=== PATIENT | male | born 1955 | race African-American/Black ===

== ENCOUNTER 2017-11-25 00:51 | Emergency (ER) | payer BC | END 2017-11-25 02:10 | disposition home or self-care (01) | LOC: ERS 00:51 | DX: H01.004 Unspecified blepharitis left upper eyelid (principal); I10 Essential (primary) hypertension; R73.03 Prediabetes | CPT/HCPCS: 99283 ==

== ENCOUNTER 2018-02-24 03:58 | Emergency (ER) | payer BC ==
[2018-02-24] MEDS ORDERED: Ketorolac Tromethamine 60 MG/2 ML VIAL ONE (04:11)
== END 2018-02-24 04:50 | disposition home or self-care (01) ==
LOC: ERS 03:58
DX: M10.9 Gout, unspecified (principal); E11.9 Type 2 diabetes mellitus without complications; I10 Essential (primary) hypertension; Z79.899 Other long term (current) drug therapy
CPT/HCPCS: 96372; J1885

== ENCOUNTER 2018-04-25 15:33 | Observation (INO) | payer BC ==
[2018-04-25 16:00] LABS: #Basophils 0.1 thou/uL (0.0-0.2); #Eosinphils 0.2 thou/uL (0.0-0.7); #Lymphocytes 2.9 thou/uL (1.20-3.40); #Monocytes 0.7 thou/uL (0.11-0.59); #Neutrophils 7.4 thou/uL (1.40-6.50); %Basophils 0.6 % (0.0-1.0); %Eosinophils 1.7 % (0.0-10.0); %Lymphocytes 25.5 % (21.0-51.0); %Monocytes 6.6 % (0.0-10.0); %Neutrophils 65.6 % (42.0-75.0); Hemoglobin 14.8 g/dL (14.0-18.0); Mean Corpuscular HGB CONC 33.5 g/dL (32.0-36.0); Mean Corpuscular Hemoglobin 29.6 pg (27.0-31.0); Mean Corpuscular Volume 88.3 fL (78.0-98.0); Mean Platelet Volume 8.8 fL (7.4-10.4); Platelet Count 296 thou/uL (130-400); RBC Distribution Width 12.4 % (11.5-14.5); Red Blood Cell (RBC) Count 5.01 mill/uL (4.70-6.10); White Blood Cell (WBC) Count 11.3 thou/uL (4.8-10.8)
[2018-04-25 16:21] LABS: ALT (SGPT) 40 U/L (8-55); AST (SGOT) 27 U/L (5-34); Albumin 4.6 g/dL (3.5-5.0); Alkaline Phosphatase 102 U/L (40-150); Anion Gap 17 mmol/L (10-20); BUN (Urea Nitrogen) 16 mg/dL (8.4-25.7); Bilirubin, Total 0.4 mg/dL (0.2-1.2); CK (CPK) 175 U/L (30-200); Calc. Creatinine Clearance 0 mL/min (70-130); Calcium 10.9 mg/dL (7.8-10.44); Carbon Dioxide 27 mmol/L (22-29); Chloride 98 mmol/L (98-107); Estimated GFR-MDRD 72; Glucose 336 mg/dL (70-105); Potassium 3.2 mmol/L (3.5-5.1); Protein, Total 8.6 g/dL (6.0-8.3); Sodium 139 mmol/L (136-145)
[2018-04-25 16:25] LABS: CKMB 1.7 ng/mL (0-6.6); Troponin I Less than 0.010 ng/mL (< 0.028)
[2018-04-25] MEDS ORDERED: Aspirin 325 MG TAB ONE (16:51)
[2018-04-25] MEDS ORDERED: Potassium Chloride 20 MEQ TAB ONE (16:51)
[2018-04-25 16:59] LABS: Hemoglobin A1c 10.2 % (4.0-6.0)
--- NOTE | 2018-04-25 17:03 | CT ---
CT BRAIN WITHOUT CONTRAST: 04/25/18 HISTORY: Dizziness, nausea and vomiting. FINDINGS: There are changes of chronic small vessel ischemic disease in the periventricular white matter. No ev idence of acute infarct, hemorrhage, midline shift, or abnormal extra-axial fluid collections are see n. The ventricular size is appropriate and the basilar cisterns are patent. The bony calvarium is int act. There is mucosal disease in the paranasal sinuses. IMPRESSION: No CT evidence of acute intracranial process. POS: [facility]
[2018-04-25] MEDS ORDERED: Insulin Regular 300 UNITS/3 ML VIAL SC PRN (17:48)
[2018-04-25] MEDS ORDERED: Dextrose 50% Abboject 50 ML SYRINGE SLOW IVP PRN (17:48)
[2018-04-25] MEDS ORDERED: Dextrose 5% in Water 1,000 ML IV PRN (17:48)
[2018-04-25 17:54] VITALS: BMI 38.5
[2018-04-25] MEDS ORDERED: Ondansetron ODT 4 MG TAB PO PRN (18:34)
[2018-04-25] MEDS ORDERED: Ondansetron HCl/PF 4 MG/2 ML Vial IVP PRN (18:34)
[2018-04-25] MEDS ORDERED: Mag-Al 1200 mg/1200 mg/30 ML UDCUP PO PRN (18:34)
[2018-04-25] MEDS ORDERED: Acetaminophen 325 MG TAB PO PRN (18:34)
[2018-04-25] MEDS ORDERED: Calcium Carbonate 500 MG ChewTAB PO PRN (18:34)
[2018-04-25] MEDS ORDERED: hydrALAZINE 20 MG/ML VIAL SLOW IVP PRN (18:34)
[2018-04-25] MEDS ORDERED: Senokot 8.6 MG TAB PO PRN (18:34)
--- NOTE | 2018-04-25 18:52 | HP ---
DATE OF ADMISSION: 04/25/2018 PRIMARY CARE PHYSICIAN: Maurisio Soriano M.D. CHIEF COMPLAINT: Stroke-like symptoms. HISTORY OF PRESENT ILLNESS: The patient is a 62-year-old -[place] male with diabetes mellitus type 2 and hypertension who presented to the emergency room with above complaints. Patient was resting at home this afternoon watching TV. When he got up, he felt like he was unable to walk straight. He felt dizzy; however, denies any vertigo. No syncopal episode reported. He denies any blurring of vision, facial asymmetry, weakness, numbness of any of his extremities. No chest pain, palpitations, nausea, vomiting, diaphoresis reported. Upon arriving to the emergency room, he had one episode of vomiting. No aggravating or relieving factor reported. He denies any similar symptoms in the past. In the emergency room, CT scan of the brain showed chronic ischemic white matter changes. He received aspirin and oral potassium in the emergency room. PAST MEDICAL HISTORY: 1. Hypertension. 2. Obesity. 3. Gout. 4. Diabetes mellitus type 2. PAST SURGICAL HISTORY: Bilateral hip replacement. ALLERGIES: No known drug allergies. CURRENT HOME MEDICATIONS: Patient is unable to recall any of his home medications. He takes Janumet and one blood pressure medicine. He has not taken any of his medications for the last 5 days. SOCIAL HISTORY: Patient currently lives at home with his family. He works for the [employer]. No current use of smoking, alcohol or drug use. FAMILY HISTORY: Negative for premature coronary artery disease. REVIEW OF SYSTEMS: The following complete review of systems was negative, unless otherwise mentioned in the HPI or below: Constitutional: Weight loss or gain, ability to conduct usual activities. Skin: Rash, itching. Eyes: Double vision, pain. ENT/Mouth: Nose bleeding, neck stiffness, pain, tenderness. Cardiovascular: Palpitations, dyspnea on exertion, orthopnea. Respiratory: Shortness of breath, wheezing, cough, hemoptysis, fever or night sweats. Gastrointestinal: Poor appetite, abdominal pain, heartburn, nausea, vomiting, constipation, or diarrhea. Genitourinary: Urgency, frequency, dysuria, nocturia. Musculoskeletal: Pain, swelling. Neurologic/Psychiatric: Anxiety, depression. Allergy/Immunologic: Skin rash, bleeding tendency. PHYSICAL EXAMINATION: VITAL SIGNS: In the emergency room showed temperature 98.7, respirations 12, pulse rate of 97, blood pressure 157/106, O2 saturation 94% on room air. GENERAL: A 62-year-old male in no apparent distress. Symptoms slowly improving. HEENT: Head atraumatic, normocephalic. Sclerae are anicteric. Moist mucous membrane, no oral lesion. NECK: Supple, no JVD, no carotid bruit. LUNGS: Clear to auscultation bilaterally, no wheezing, rales or rhonchi. HEART: S1, S2 present. Regular rate and rhythm. No murmur, rubs, or gallops appreciated. ABDOMEN: Soft, nontender, bowel sounds present. EXTREMITIES: No edema or calf tenderness. PSYCHIATRY: Alert, awake, oriented x3. NEUROLOGIC: Cranial nerves II-XII are normal on examination. Ilkxdn-jx-ikhq and rznf-tx-kkzj test was normal. Power was 5/5 in all extremities. No nystagmus was noted, although it was present in the emergency room per ER physician report. Sensation to touch was normal bilaterally. Gait was not assessed due to dizziness. SKIN: Warm and dry. LYMPH NODES: No palpable lymph nodes in the neck. PERIPHERAL VASCULAR: Radial pulses palpable bilaterally. MUSCULOSKELETAL: No joint swelling or tenderness. LABORATORY AND X-RAY FINDINGS: CBC showed WBC 11.3 with hemoglobin 14.8, hematocrit 44.2, platelet 296. Chemistry showed sodium 139, potassium 3.2, chloride 98, bicarbonate 27, BUN 16, creatinine 1.24, glucose 336. A1c 10.2. TSH 0.0983. Magnesium was normal. LFTs in normal range. Troponins were normal. CT scan of the brain by my review as discussed above. EKG by my review showed sinus rhythm with first degree AV block. IMPRESSION AND PLAN: 1. New onset of dizziness with Ataxia in a 62-year-old male with diabetes and hypertension. His symptoms are consistent with acute cerebrovascular accident. The patient will be monitored in the stroke unit. Stroke team will be consulted. We will continue aspirin. We will get stroke workup including MRI of the brain, carotid Doppler and echocardiogram. 2. Uncontrolled diabetes mellitus type 2. The patient was extensively counseled on diabetes. We will consult dietitian. Insulin sliding scale will be started. Will resume Janumet. We will also add low dose long-acting insulin. 3. Hypokalemia. We will repeat labs in a.m. He received oral potassium in the emergency room. 4. Hypertension, uncontrolled. We will start him on antihypertensives in a.m. We will continue permissive hypertension today. 5. First degree AV block on EKG. 6. Chronic kidney disease, stage 2. 7. Obesity with a BMI 38.6. Lifestyle modification was emphasized. 8. Degenerative joint disease. 9. Gout with recent flare. Plan of care was discussed with the patient in detail. He stated understanding. [facility]
[2018-04-25] MEDS ORDERED: Atorvastatin Calcium 40 MG TAB PO SCH (21:00)
[2018-04-25] MEDS: Famotidine 20 MG TAB PO SCH (21:08)
[2018-04-25] MEDS: Docusate 100 MG CAP PO SCH (21:08)
--- NOTE | 2018-04-25 22:21 | ULT ---
CAROTID ULTRASOUND: 04/25/18 COMPARISON: None. HISTORY: CVA. TECHNIQUE: Multiplanar gurrola scale and color doppler images were obtained in a carotid ultrasound. Spectral aidee sis of the doppler waveforms were performed. FINDINGS: There is a small amount of intimal thickening shown in both carotid bifurcations. No significant calc ified plaque is seen. The doppler waveforms are normal bilaterally. Peak systolic velocity in the right ICA is 55 cm/s. Peak systolic velocity in the right CCA is 88 cm/ s. The right ICA/CCA ratio is 0.6. Peak systolic velocity in the left ICA is 60 cm/s. Peak systolic velocity in the left CCA is 118 cm/s . The left ICA/CCA ratio is 0.5. Both vertebral arteries demonstrate antegrade flow without focal stenosis. IMPRESSION: No evidence of hemodynamically significant stenosis. POS: [facility]
[2018-04-26 06:23] LABS: Anion Gap 14 mmol/L (10-20); BUN (Urea Nitrogen) 13 mg/dL (8.4-25.7); Calc. Creatinine Clearance 138 mL/min (70-130); Calcium 9.7 mg/dL (7.8-10.44); Carbon Dioxide 26 mmol/L (22-29); Cardiac Risk 7.2 (Less than 4.5); Chloride 102 mmol/L (98-107); Cholesterol 215 mg/dl (< 200 Desired); Estimated GFR-MDRD Greater than 90; Glucose 218 mg/dL (70-105); HDL Cholesterol 30 mg/dL (>60 Neg Risk); LDL Cholesterol, Calculated 160 mg/dL; Potassium 3.5 mmol/L (3.5-5.1); Sodium 138 mmol/L (136-145); Triglycerides 126 mg/dL (Less than 150)
[2018-04-26] MEDS: Insulin Regular 300 UNITS/3 ML VIAL SC PRN ×3 (06:41→17:12)
[2018-04-26 07:41] VITALS: TEMP 97.9
[2018-04-26] MEDS ORDERED: Aspirin 325 mg Enteric Coated Tablet PO SCH (09:00)
[2018-04-26] MEDS ORDERED: Insulin Glargine 10 UNITS in Pre-Filled Syringe SC SCH (09:00)
[2018-04-26] MEDS ORDERED: Cyanocobalamin (Vitamin B-12) 1,000 MCG TAB PO SCH (09:00)
[2018-04-26] MEDS ORDERED: Multivit, Therapeutic 1 TAB PO SCH (09:00)
[2018-04-26] MEDS ORDERED: Enoxaparin Sodium 40 MG/0.4 ML SYRINGE SC SCH (09:00)
[2018-04-26] MEDS ORDERED: Folic Acid 1 MG TAB PO SCH (09:00)
[2018-04-26] MEDS: Docusate 100 MG CAP PO SCH (09:12)
[2018-04-26] MEDS: Famotidine 20 MG TAB PO SCH (09:13)
--- NOTE | 2018-04-26 09:13 | MRI ---
MRI BRAIN WITHOUT CONTRAST: Date: 04/26/18 HISTORY: Dizziness. FINDINGS: Correlation made with CT scan from previous day. No restricted diffusion is seen. Multiple foci of T2 prolongation is noted in the periventricular whi te matter, consistent with chronic small vessel ischemic disease. The ventricular size is appropriate and the basilar cisterns are patent. No evidence of infarct, hemorrhage, midline shift, or abnormal extra-axial fluid collections are seen. There is mucosal disease in the paranasal sinuses. IMPRESSION: No evidence of acute intracranial process. POS: [facility]
[2018-04-26 11:46] VITALS: BP 141/85
[2018-04-26] MEDS ORDERED: Amlodipine 5 MG TAB PO SCH (17:45)
--- NOTE | 2018-04-26 17:45 | DIS ---
DATE OF DISCHARGE: 04/26/2018 Please note that the patient will be discharged after echocardiogram report. The patient was seen and examined on the day of discharge, denies any new complaints, no chest pain, shortness of breath, palpitations. PHYSICAL EXAMINATION: VITAL SIGNS: Showed temperature 97.9, pulse rate of 79, respiration 14, blood pressure 141/85 with O 2 saturation 97% on room air. GENERAL: A 62-year-old male in no apparent distress. He denies any new focal deficits. LUNGS: Clear to auscultation bilaterally. No wheezing, rales or rhonchi. HEART: S1, S2 present. Regular rate and rhythm. No murmur, rubs, or gallops appreciated. ABDOMEN: Soft, nontender, bowel sounds present. EXTREMITIES: No edema or calf tenderness. NEUROLOGICAL: Grossly nonfocal, moves all four extremities. Power was 5/5 in all extremities. Fing er-to-nose and wsdp-js-bchc test was normal. PSYCHIATRIC: Alert, awake, oriented x3. Normal affect. LABORATORY FINDINGS: 1. Fasting lipid profile showed triglyceride 126, cholesterol 215, LDL 160, HDL 30. 2. CBC showed WBC 11.3, hemoglobin 14.8, hematocrit 44.2, platelets of 296. 3. MRI of the brain was negative for acute cerebrovascular accident. 4. Carotid Doppler was negative for hemodynamically significant stenosis. BRIEF HOSPITAL COURSE: The patient is a 62-year-old male with diabetes mellitus type 2 and hypertens ion who presented to the emergency room with unsteady gait. He was unable to walk straight. He also had some dizziness; however, denies any vertigo. His symptoms have completely resolved. Please ref er to the history and physical for further details. The patient was admitted to the hospital with a diagnosis of suspected acute CVA. He underwent strok e workup as discussed above. Echocardiogram has been done and report is pending at this time. His h emoglobin A1c was 10.2. He was counseled extensively on diabetes by myself as well as by the dietiti an. Insulin was recommended; however, the patient declined. He would prefer to continue Janumet. [place] moreno was advised to maintain a blood glucose log and to follow up with his primary care physician, Amalia Remy next week. He also sees Dr. Soriano on and off. Plan of care was discussed with the patient in detail. He stated understanding. He was extensively counseled to take aspirin and statins on a jennifer y basis. FINAL DIAGNOSES: 1. Transient ischemic attack. 2. Uncontrolled diabetes mellitus type 2. Please note that patient declined insulin. 3. Obesity with a BMI 38.6. 4. Gout with recent flare. 5. Hypokalemia, replaced. 6. First degree AV block. 7. Elevated blood pressure on admission. His blood pressure today was 141/85. 8. Chronic kidney disease, stage 2. 9. Degenerative joint disease. DISCHARGE MEDICATIONS: Aspirin 81 mg daily, Lipitor 40 mg daily, colchicine as directed, Janumet 50/ 1000 daily, amlodipine 5 mg daily, multivitamin 1 tablet daily. Plan of care was discussed with the patient in detail. He stated understanding. Please note that the patient will be discharged after echocardiogram report.
[2018-04-26] MEDS ORDERED: metFORMIN 500 MG TAB PO SCH (21:00)
[2018-04-26] MEDS ORDERED: Alogliptin 6.25 MG TAB PO SCH (21:00)
[2018-04-27] MEDS ORDERED: Amlodipine 5 MG TAB PO SCH (09:00)
--- NOTE | 2018-05-05 18:20 | EKG ---
Test Reason : DIZZINESS Blood Pressure : / mmHG Vent. Rate : 095 BPM Atrial Rate : 095 BPM P-R Int : 214 ms QRS Dur : 102 ms QT Int : 356 ms P-R-T Axes : 048 036 -02 degrees QTc Int : 447 ms Sinus rhythm with 1st degree A-V block Otherwise normal ECG Confirmed by FELA WEBB, MARLEN Whittington ([id number]), photography editor SWATI LYLE ([id number]) on 05/05/2018 6:20:19 PM Referred By: Confirmed By:MARLEN CHAHAL MD
== END 2018-04-26 18:26 | disposition home or self-care (01) ==
LOC: ERS 15:33 → 2SE 16:47
PROVIDERS: ADMIT Internal Medicine; ATTEND Internal Medicine
DX: G45.9 Transient cerebral ischemic attack, unspecified (principal); I12.9 Hypertensive chronic kidney disease with stage 1 through stage 4 chronic kidney disease, or unspecified chronic kidney disease; E11.22 Type 2 diabetes mellitus with diabetic chronic kidney disease; N18.2 Chronic kidney disease, stage 2 (mild); M10.9 Gout, unspecified; M19.90 Unspecified osteoarthritis, unspecified site; E87.6 Hypokalemia; I44.0 Atrioventricular block, first degree; E66.9 Obesity, unspecified; Z68.38 Body mass index [BMI] 38.0-38.9, adult; Z79.84 Long term (current) use of oral hypoglycemic drugs; Z79.899 Other long term (current) drug therapy; Z96.643 Presence of artificial hip joint, bilateral
CPT/HCPCS: 36415; 36416; 70450; 70551; 80048; 80053; 80061; 82550; 82553; 83036; 83735; 84443; 84484; 85025; 90471; 90732; 93005; 93306; 93880; 96372; G0009; G0378; G8978-GP-CH; G8979-GP-CH; G8980-GP-CH; J1650; J1815

== ENCOUNTER 2018-06-07 08:09 | Outpatient (CLI) | payer BC ==
--- NOTE | 2018-06-08 12:38 | NM ---
NUCLEAR MEDICINE THYROID UPTAKE AND SCAN: History: Abnormal thyroid function studies. Technique: A Nuclear Medicine thyroid uptake and scan was performed after administration of 239 mCi I 123 PO. FINDINGS: The thyroid lobes are enlarged measuring 4.6 and 6.2 cm in length on the right and left, respectively . There was increased uptake in the lower pole of the left thyroid lobe which may represent an asymme trically enlarged left thyroid lobe versus a hot nodule in the left lower lobe of the thyroid. No col d thyroid nodules are seen. Six-hour uptake is 15.76%. Twenty-four hour uptake is 25.64%. IMPRESSION: 1. Thyromegaly. 2. Increased uptake in the lower pole of the left thyroid lobe could potentially represent a hot nodu le. This is not an automatous nodule as there is still radiopharmaceutical uptake in the rest of the thyroid lobes. 3. Normal six and twenty-four hour thyroid uptake. POS: [facility]
== END 2018-06-07 08:10 | disposition home or self-care (01) ==
LOC: NM 08:09
PROVIDERS: ATTEND Internal Medicine Endocrinology, Diabetes & Metabolism
DX: R94.6 Abnormal results of thyroid function studies (principal); E01.0 Iodine-deficiency related diffuse (endemic) goiter
CPT/HCPCS: 78014; A9509

== ENCOUNTER 2018-11-30 23:15 | Emergency (ER) | payer BC ==
[2018-12-01] MEDS ORDERED: Colchicine 0.6 MG TAB ONE ×3 (00:41→01:58)
[2018-12-01] MEDS ORDERED: Colchicine 0.6 MG TAB PO SCH ×2 (01:00→02:00)
--- NOTE | 2018-12-01 09:20 | RAD ---
LEFT ANKLE RADIOGRAPH THREE VIEW SERIES: INDICATIONS: Pain. Acute gout FLAIR. FINDINGS: No focal osseous destructive lesion is identified. There is a small enthesophyte at the plantar aspe ct of the calcaneus. Soft tissue prominence overlying the calcaneus is present, and there is mild so ft tissue prominence at the level of the ankle. The mortise is intact. Mild osteophytosis. IMPRESSION: 1. No definite acute osseous abnormality. 2. Soft tissue prominence. 3. Scattered osteophytosis and enthesophyte formation. POS: [facility]
== END 2018-12-01 02:12 | disposition home or self-care (01) ==
LOC: ERS 23:15
DX: M10.9 Gout, unspecified (principal); E11.9 Type 2 diabetes mellitus without complications; I10 Essential (primary) hypertension; Z79.899 Other long term (current) drug therapy

== ENCOUNTER 2020-10-22 00:30 | Emergency (ER) | payer BC ==
[2020-10-22] MEDS ORDERED: Ketorolac Tromethamine 30 MG/ML VIAL ONE (00:49)
== END 2020-10-22 01:11 | disposition home or self-care (01) ==
LOC: ERS 00:30
DX: M10.9 Gout, unspecified (principal); E11.9 Type 2 diabetes mellitus without complications; I10 Essential (primary) hypertension; Z79.899 Other long term (current) drug therapy
CPT/HCPCS: 96372; 99283; J1885

== ENCOUNTER 2021-05-23 16:09 | Emergency (ER) | payer BC ==
[2021-05-23] MEDS ORDERED: Ketorolac Tromethamine 30 MG/ML VIAL ONE (19:15)
== END 2021-05-23 19:38 | disposition home or self-care (01) ==
LOC: ERS 16:09
DX: M10.9 Gout, unspecified (principal); Z79.899 Other long term (current) drug therapy; Z79.52 Long term (current) use of systemic steroids; E11.9 Type 2 diabetes mellitus without complications; I10 Essential (primary) hypertension
CPT/HCPCS: 96372; J1885

== ENCOUNTER 2022-06-12 14:14 | Emergency (ER) | payer BC ==
[2022-06-12] MEDS ORDERED: Ketorolac Tromethamine 30 MG/ML VIAL ONE (14:32)
== END 2022-06-12 14:44 | disposition home or self-care (01) ==
LOC: ERS 14:14
DX: M10.9 Gout, unspecified (principal); E11.9 Type 2 diabetes mellitus without complications; I10 Essential (primary) hypertension; Z79.84 Long term (current) use of oral hypoglycemic drugs; Z79.899 Other long term (current) drug therapy
CPT/HCPCS: 96372; 99283; J1885

== ENCOUNTER 2022-07-21 09:21 | Outpatient (CLI) | payer BC | END 2022-07-21 09:22 | disposition home or self-care (01) | LOC: DTY/OP 09:21 | PROVIDERS: ATTEND Physician Assistant | DX: E11.65 Type 2 diabetes mellitus with hyperglycemia (principal) | CPT/HCPCS: 97802 ==

== ENCOUNTER 2023-03-08 18:47 | Emergency (ER) | payer BC ==
[2023-03-08] MEDS ORDERED: Ketorolac Tromethamine 30 MG/ML VIAL ONE (19:37)
== END 2023-03-08 19:50 | disposition home or self-care (01) ==
LOC: ERS 18:47
DX: M10.9 Gout, unspecified (principal); E11.9 Type 2 diabetes mellitus without complications; I10 Essential (primary) hypertension
CPT/HCPCS: 36415; 80053; 85025; 96372; 99283; J1885

== ENCOUNTER 2023-07-12 11:52 | Emergency (ER) | payer OTHER | END 2023-07-12 14:12 | disposition home or self-care (01) | LOC: ERS 11:52 | DX: S09.90XA Unspecified injury of head, initial encounter (principal); V89.2XXA Person injured in unspecified motor-vehicle accident, traffic, initial encounter | CPT/HCPCS: 70450; 71045; 72170 ==

== ENCOUNTER 2024-02-14 00:46 | Emergency (ER) | payer OTHER ==
[2024-02-14 01:34] LABS: Bilirubin Negative (Negative); Blood, Urine 3+ (Negative); CAUTI Indications for Culture Dysuria,urgency,freq; Clarity Turbid (Clear); Glucose, Urine (Dipstick) 50 mg/dL (Negative); Ketone, Urine Negative (Negative); Leukocyte 500 Leu/uL (Negative); Nitrite 1+ (Negative); Protein, Urine (Dipstick) 70 mg/dL (Neg-Trace); RBC/HPF Greater than 50 HPF (0-3); Specific Gravity, Urine 1.023 (1.002-1.036); Squamous Epithelial 0-3 HPF (0-3); Urobilinogen Normal mg/dL (Less than 2); WBC/HPF Greater than 50 HPF (0-3)
[2024-02-14 01:35] LABS: Bacteria/HPF 1+ HPF (None Seen)
[2024-02-14 01:36] LABS: Urine Culture Reflex Yes Yes
[2024-02-14] MEDS ORDERED: Sodium Chloride 0.9% 100 ML ONE (03:02)
[2024-02-14] MEDS ORDERED: cefTRIAXone (ROCEPHIN) 2 GM VIAL ONE (03:02)
[2024-02-14 03:12] LABS: #Basophils 0.06 10x3/uL (0.0-0.2); %Basophils 0.5 % (0.0-1.0); %Eosinophils 1.5 % (0.0-10.0); %Lymphocytes 13.1 % (21.0-51.0); Hematocrit 39.6 % (42.0-52.0); Hemoglobin 13.1 g/dL (14.0-18.0); Mean Corpuscular HGB CONC 33.1 g/dL (32.0-36.0); Mean Corpuscular Hemoglobin 29.7 pg (27.0-31.0); Mean Corpuscular Volume 89.8 fL (78.0-98.0); Mean Platelet Volume 11.1 fL (7.4-10.4); Platelet Count 226 10x3/uL (130-400); RBC Distribution Width 12.6 % (11.5-14.5); Red Blood Cell (RBC) Count 4.41 mill/uL (4.70-6.10)
[2024-02-14 03:44] LABS: ALT (SGPT) 14 U/L (8-55); AST (SGOT) 14 U/L (5-34); Albumin 3.4 g/dL (3.4-4.8); Alkaline Phosphatase 81 U/L (40-110); Anion Gap 13 mmol/L (10-20); BUN (Urea Nitrogen) 11 mg/dL (8.4-25.7); Bilirubin, Total 0.4 mg/dL (0.2-1.2); Calc. Creatinine Clearance 0 mL/min (70-130); Calcium 9.8 mg/dL (7.8-10.44); Carbon Dioxide 25 mmol/L (23-31); Chloride 104 mmol/L (98-107); Estimated GFR 82; Globulin 3.9 g/dL (2.4-3.5); Glucose 240 mg/dL (80-115); Potassium 2.8 mmol/L (3.5-5.1); Protein, Total 7.3 g/dL (5.8-8.1); Sodium 139 mmol/L (136-145)
[2024-02-14] MEDS ORDERED: Potassium Chloride 20 MEQ TAB ONE (04:15)
== END 2024-02-14 04:58 | disposition home or self-care (01) ==
LOC: ERS 00:46
DX: N39.0 Urinary tract infection, site not specified (principal); E11.65 Type 2 diabetes mellitus with hyperglycemia; E87.6 Hypokalemia; I10 Essential (primary) hypertension; E78.00 Pure hypercholesterolemia, unspecified; Z55.0 Illiteracy and low-level literacy
CPT/HCPCS: 80053; 81001; 85025; 87077; 87086; 87186; 93005; 96374; 99285; J0696; J3490; 36415

== ENCOUNTER 2025-05-03 08:49 | Emergency (ER) | payer OTHER ==
[2025-05-03 09:30] LABS: #Basophils 0.03 10x3/uL (0.0-0.2); #Eosinophils 0.14 10x3/uL (0.0-0.7); #Monocytes 0.67 10x3/uL (0.11-0.59); #Neutrophils 5.48 10x3/uL (1.40-6.50); %Basophils 0.4 % (0.0-1.0); %Eosinophils 1.8 % (0.0-10.0); %Lymphocytes 19.0 % (21.0-51.0); %Monocytes 8.4 % (0.0-10.0); %Neutrophils 69.0 % (42.0-75.0); Hematocrit 42.4 % (42.0-52.0); Hemoglobin 13.7 g/dL (14.0-18.0); Mean Corpuscular Hemoglobin 28.2 pg (27.0-31.0); Mean Corpuscular Volume 87.4 fL (78.0-98.0); Platelet Count 211 10x3/uL (130-400); Red Blood Cell (RBC) Count 4.85 mill/uL (4.70-6.10); White Blood Cell (WBC) Count 7.94 10x3/uL (4.8-10.8)
[2025-05-03 09:50] LABS: ALT (SGPT) 72 U/L (Less than 45); AST (SGOT) 66 U/L (11-34); Albumin 3.4 g/dL (3.1-4.5); Alkaline Phosphatase 99 U/L (40-110); Anion Gap 15 mmol/L (10-20); BUN (Urea Nitrogen) 13 mg/dL (8.4-25.7); Bilirubin, Total 0.3 mg/dL (0.3-1.2); Calc. Creatinine Clearance 0 mL/min (70-130); Calcium 9.8 mg/dL (7.8-10.44); Carbon Dioxide 26 mmol/L (23-31); Chloride 103 mmol/L (98-107); Globulin 3.3 g/dL (2.4-3.5); Glucose 288 mg/dL (80-115); Lipase 18 U/L (8-78); Potassium 2.8 mmol/L (3.5-5.1); Sodium 141 mmol/L (136-145)
[2025-05-03] MEDS ORDERED: NS 0.9% w/ 20 MEQ KCL 0 ML ONE (10:41)
[2025-05-03] MEDS ORDERED: NS 0.9% w/ 20 MEQ KCL 1,000 ML ONE (10:43)
[2025-05-03 10:48] LABS: Magnesium 1.6 mg/dL (1.6-2.6)
[2025-05-03] MEDS ORDERED: NS 0.9% w/ 20 MEQ KCL 1,000 ML IV SCH (11:00)
[2025-05-03 14:15] LABS: Anion Gap 14 mmol/L (10-20); BUN (Urea Nitrogen) 12 mg/dL (8.4-25.7); Calc. Creatinine Clearance 0 mL/min (70-130); Calcium 9.8 mg/dL (7.8-10.44); Carbon Dioxide 21 mmol/L (23-31); Chloride 107 mmol/L (98-107); Glucose 230 mg/dL (80-115); Potassium 3.1 mmol/L (3.5-5.1); Sodium 139 mmol/L (136-145)
== END 2025-05-03 14:40 | disposition home or self-care (01) ==
LOC: ERS 08:49
DX: R19.7 Diarrhea, unspecified (principal); E87.6 Hypokalemia; E11.9 Type 2 diabetes mellitus without complications; E78.5 Hyperlipidemia, unspecified; I10 Essential (primary) hypertension; Z79.899 Other long term (current) drug therapy
CPT/HCPCS: 80048; 80053; 83690; 83735; 85025; 93005; J3480; 36415; 96365; 96366

== ENCOUNTER 2025-06-03 12:13 | Inpatient (IN) | payer OTHER ==
[2025-06-03] MEDS ORDERED: Nitroglycerin 0.4 MG TAB 1 EACH ONE (12:40)
[2025-06-03] MEDS ORDERED: Aspirin Chewable 81 MG TAB ONE (12:40)
[2025-06-03 12:47] LABS: #Basophils 0.04 10x3/uL (0.0-0.2); #Eosinophils 0.15 10x3/uL (0.0-0.7); #Monocytes 0.80 10x3/uL (0.11-0.59); #Neutrophils 6.82 10x3/uL (1.40-6.50); %Basophils 0.4 % (0.0-1.0); %Eosinophils 1.4 % (0.0-10.0); %Lymphocytes 27.1 % (21.0-51.0); %Monocytes 7.4 % (0.0-10.0); %Neutrophils 62.9 % (42.0-75.0); Hematocrit 43.7 % (42.0-52.0); Hemoglobin 14.2 g/dL (14.0-18.0); Mean Corpuscular Hemoglobin 27.8 pg (27.0-31.0); Mean Corpuscular Volume 85.7 fL (78.0-98.0); Platelet Count 251 10x3/uL (130-400); Red Blood Cell (RBC) Count 5.10 mill/uL (4.70-6.10); White Blood Cell (WBC) Count 10.84 10x3/uL (4.8-10.8)
[2025-06-03] MEDS ORDERED: Iopamidol 370 76% 100 ML VIAL ONE (13:06)
[2025-06-03] MEDS ORDERED: Nitroglycerin 50 MG/250 ML BOT 250 ML ONE (13:11)
[2025-06-03] MEDS ORDERED: Adenosine 6 mg (2 mL) VIAL ONE (13:11)
[2025-06-03] MEDS ORDERED: Lidocaine 1% (PF) 30 ML VIAL ONE (13:11)
[2025-06-03] MEDS ORDERED: EPINEPHrine 1 MG/10 ML Abboject SYRINGE ONE (13:11)
[2025-06-03] MEDS ORDERED: Heparin 10,000 UNITS/ 10 ML VIAL ONE (13:11)
[2025-06-03] MEDS ORDERED: PHENYLEPHRINE-NS 100 MCG/ML 10 ML SYRINGE ONE ×2 (13:12→14:33)
[2025-06-03 13:32] LABS: ALT (SGPT) 27 U/L (Less than 45); AST (SGOT) 27 U/L (11-34); Albumin 3.7 g/dL (3.1-4.5); Alkaline Phosphatase 76 U/L (40-110); Anion Gap 15 mmol/L (10-20); BUN (Urea Nitrogen) 12 mg/dL (8.4-25.7); Bilirubin, Total 0.4 mg/dL (0.3-1.2); Calc. Creatinine Clearance 0 mL/min (70-130); Calcium 10.0 mg/dL (7.8-10.44); Carbon Dioxide 28 mmol/L (23-31); Chloride 103 mmol/L (98-107); Globulin 3.8 g/dL (2.4-3.5); Glucose 315 mg/dL (80-115); Lipase 13 U/L (8-78); Potassium 2.4 mmol/L (3.5-5.1); Sodium 144 mmol/L (136-145)
[2025-06-03] MEDS ORDERED: Heparin 30,000 units/30 ml VIAL ONE (15:04)
[2025-06-03] MEDS ORDERED: Heparin 5,000 UNITS/ML VIAL ONE (15:04)
[2025-06-03] MEDS ORDERED: Calcium Chloride 1 GM/10 ML Abboject SYRINGE ONE (15:04)
[2025-06-03] MEDS ORDERED: Thrombin 5000 UNITS/5 ML VIAL ONE (15:04)
[2025-06-03] MEDS ORDERED: Cardioplegic Soln 1,000 ML BAG ONE (15:04)
[2025-06-03] MEDS ORDERED: fentaNYL PF 100 MCG/2 ML SYRINGE ONE (15:20)
[2025-06-03] MEDS ORDERED: PROPOFOL 20 ML ONE ×2 (15:26)
[2025-06-03] MEDS ORDERED: Rocuronium Bromide 10 MG/ML (10ML VIAL) ONE (18:14)
[2025-06-03] MEDS ORDERED: Hetastarch 6% 500 ML 500 ML IVPB PRN (18:19)
[2025-06-03] MEDS ORDERED: Mag-Al 1200 mg/1200 mg/30 ML UDCUP PO PRN (18:19)
[2025-06-03] MEDS ORDERED: Bisacodyl 10 MG SUPP PR PRN (18:19)
[2025-06-03] MEDS ORDERED: Albumin 5% 12.5 GM (250 mL) BOT IVPB PRN ×2 (18:19)
[2025-06-03] MEDS ORDERED: NOREPINEPHRINE 8 MG/250 ML-D5W 250 ML IVPB PRN (18:19)
[2025-06-03] MEDS ORDERED: INSULIN REGULAR IN 0.9 % NACL 100 ML IVPB SCH (18:45)
[2025-06-03] MEDS ORDERED: Glucagon 1 MG/ML KIT SC PRN (18:45)
[2025-06-03] MEDS ORDERED: Dextrose 50% Abboject 50 ML SYRINGE SLOW IVP PRN (18:45)
[2025-06-03 19:05] LABS: Actual Bicarbonate (HCO3a) 19.5 mEq/L (22-28); Base Excess (BEa) -5.4 mEq/L (-2.0 to +3.0); CO2 Tension 36.3 mmHg (35.0-45.0); Calcium, Ionized (arterial) 1.27 mmol/L (1.12-1.30); Hematocrit-ABG 40 % (42.0-52.0); Hemoglobin (Hb) 13.7 g/dL (14.0-18.0); O2 Tension (PaO2), arterial 186.5 mmHg (> 80.0); Potassium - ABG Lab 3.13 mmol/L (3.70-5.30); pH, Arterial 7.348 (7.35-7.45)
[2025-06-03 19:06] LABS: ALV-art Gradient 481.125 mmHg (0-20); Puncture Site LINE
[2025-06-03 19:18] LABS: #Basophils 0.07 10x3/uL (0.0-0.2); #Eosinophils 0.06 10x3/uL (0.0-0.7); #Monocytes 1.93 10x3/uL (0.11-0.59); #Neutrophils 20.42 10x3/uL (1.40-6.50); %Basophils 0.3 % (0.0-1.0); %Eosinophils 0.2 % (0.0-10.0); %Lymphocytes 7.0 % (21.0-51.0); %Monocytes 7.9 % (0.0-10.0); %Neutrophils 83.3 % (42.0-75.0); Hematocrit 39.4 % (42.0-52.0); Hemoglobin 12.6 g/dL (14.0-18.0); Mean Corpuscular Hemoglobin 28.1 pg (27.0-31.0); Mean Corpuscular Volume 87.9 fL (78.0-98.0); Platelet Count 213 10x3/uL (130-400); Red Blood Cell (RBC) Count 4.48 mill/uL (4.70-6.10); White Blood Cell (WBC) Count 24.50 10x3/uL (4.8-10.8)
[2025-06-03] MEDS: Magnesium 2 GM/50 ML(in water) 2 GM in Premix 1 BAG IVPB SCH (19:18)
[2025-06-03] MEDS: INSULIN REGULAR IN 0.9 % NACL 100 UNITS in Premix 1 BAG IVPB SCH (19:18)
[2025-06-03] MEDS: D5 1/2 NS w/20 mEq KCL 1,000 ML IV SCH (19:18)
[2025-06-03 19:24] LABS: Anion Gap 17 mmol/L (10-20); BUN (Urea Nitrogen) 11 mg/dL (8.4-25.7); Calc. Creatinine Clearance 0 mL/min (70-130); Calcium 9.8 mg/dL (7.8-10.44); Carbon Dioxide 23 mmol/L (23-31); Chloride 107 mmol/L (98-107); Glucose 249 mg/dL (80-115); INR-International Normal Ratio 1.2; Potassium 2.9 mmol/L (3.5-5.1); Prothrombin Time 15.1 sec (12.0-14.7); Sodium 144 mmol/L (136-145)
[2025-06-03 19:25] LABS: PTT 30.4 sec (22.9-36.1)
[2025-06-03] MEDS: Post-Op Insulin Drip Protocol IVPB ONE (19:27)
[2025-06-03] MEDS: Potassium Chloride 20 MEQ in Premix 1 BAG IVPB SCH (19:27)
[2025-06-03] MEDS: Potassium Chloride 20 MEQ (100 mL) BAG IVPB PRN (19:42)
[2025-06-03] MEDS: Famotidine/PF 20 mg/2ml Vial SLOW IVP SCH (20:51)
[2025-06-03] MEDS: Gabapentin 300 MG CAP PO SCH (20:55)
[2025-06-03] MEDS: hydrALAZINE 20 MG/ML VIAL SLOW IVP PRN (22:14)
[2025-06-03] MEDS: Nitroglycerin 50 MG/250 ML BOT 250 ML IVPB PRN (22:24)
[2025-06-03 22:59] VITALS: BMI 29.8
[2025-06-03] MEDS: PNEUMOC 20-VAL CONJ-DIP CRM/PF 0.5 ML SYRINGE IM ONE (23:47)
[2025-06-04] MEDS: Ketorolac Tromethamine 30 MG (1 mL) VIAL IVP SCH (00:14)
[2025-06-04 00:27] LABS: Actual Bicarbonate (HCO3a) 21.1 mEq/L (22-28); Base Excess (BEa) -2.7 mEq/L (-2.0 to +3.0); CO2 Tension 33.4 mmHg (35.0-45.0); Calcium, Ionized (arterial) 1.26 mmol/L (1.12-1.30); Hematocrit-ABG 36 % (42.0-52.0); Hemoglobin (Hb) 12.4 g/dL (14.0-18.0); O2 Tension (PaO2), arterial 89.6 mmHg (> 80.0); Potassium - ABG Lab 2.78 mmol/L (3.70-5.30); pH, Arterial 7.418 (7.35-7.45)
[2025-06-04 00:28] LABS: ALV-art Gradient 153.850 mmHg (0-20); Puncture Site Arterial Line
[2025-06-04 00:56] LABS: Hematocrit 34.6 % (42.0-52.0); Hemoglobin 11.3 g/dL (14.0-18.0)
[2025-06-04 00:59] LABS: Potassium 2.8 mmol/L (3.5-5.1)
[2025-06-04 05:41] LABS: #Basophils Less than 0.03 10x3/uL (0.0-0.2); #Eosinophils Less than 0.03 10x3/uL (0.0-0.7); #Monocytes 0.95 10x3/uL (0.11-0.59); #Neutrophils 11.68 10x3/uL (1.40-6.50); %Basophils 0.1 % (0.0-1.0); %Eosinophils 0.0 % (0.0-10.0); %Lymphocytes 5.8 % (21.0-51.0); %Monocytes 7.0 % (0.0-10.0); %Neutrophils 86.4 % (42.0-75.0); Hematocrit 36.5 % (42.0-52.0); Hemoglobin 12.0 g/dL (14.0-18.0); Mean Corpuscular Hemoglobin 28.8 pg (27.0-31.0); Mean Corpuscular Volume 87.7 fL (78.0-98.0); Platelet Count 208 10x3/uL (130-400); Red Blood Cell (RBC) Count 4.16 mill/uL (4.70-6.10); White Blood Cell (WBC) Count 13.52 10x3/uL (4.8-10.8)
[2025-06-04 06:28] LABS: Anion Gap 12 mmol/L (10-20); BUN (Urea Nitrogen) 13 mg/dL (8.4-25.7); Calc. Creatinine Clearance 113 mL/min (70-130); Calcium 9.6 mg/dL (7.8-10.44); Carbon Dioxide 26 mmol/L (23-31); Chloride 112 mmol/L (98-107); Glucose 128 mg/dL (80-115); Potassium 3.0 mmol/L (3.5-5.1); Sodium 147 mmol/L (136-145)
[2025-06-04] MEDS ORDERED: Dextrose 50% Abboject 50 ML SYRINGE SLOW IVP PRN (06:37)
[2025-06-04] MEDS ORDERED: Glucagon 1 MG/ML KIT IM PRN (06:37)
[2025-06-04] MEDS: Enoxaparin 40 MG (0.4 mL) SYRINGE SC SCH (10:25)
[2025-06-04] MEDS: Colchicine 0.6 MG TAB PO SCH (10:25)
[2025-06-04] MEDS: Aspirin 325 MG TAB PO SCH (10:25)
[2025-06-04] MEDS: Pantoprazole 40 MG DR.TAB PO SCH (10:26)
[2025-06-04] MEDS: Magnesium 2 GM/50 ML(in water) 2 GM in Premix 1 BAG IVPB SCH (10:26)
[2025-06-04] MEDS: Ondansetron PF 4 MG/2 ML Vial IVP PRN (14:53)
[2025-06-04] MEDS ORDERED: Insulin Glargine 30 UNITS/0.3 ML VIAL SC PRN (18:36)
[2025-06-04] MEDS ORDERED: diphenhydrAMINE 25 MG CAP PO PRN (19:57)
[2025-06-04] MEDS ORDERED: Artificial Tear Ophth Sol 15 ML BOT EA EYE PRN (19:57)
[2025-06-04] MEDS ORDERED: Mineral Oil ENEMA PR PRN (19:57)
[2025-06-04] MEDS ORDERED: Nitroglycerin 0.4 MG TAB (25 Tab Bottle) SL PRN (19:57)
[2025-06-04] MEDS ORDERED: Milk Of Magnesia 30 ML UDCUP PO PRN (19:57)
[2025-06-05 05:05] LABS: Anion Gap 14 mmol/L (10-20); BUN (Urea Nitrogen) 24 mg/dL (8.4-25.7); Calc. Creatinine Clearance 59 mL/min (70-130); Calcium 9.2 mg/dL (7.8-10.44); Carbon Dioxide 25 mmol/L (23-31); Chloride 106 mmol/L (98-107); Glucose 201 mg/dL (80-115); Potassium 3.8 mmol/L (3.5-5.1); Sodium 141 mmol/L (136-145)
[2025-06-05] MEDS: Senokot S 8.6-50 MG TAB PO SCH (10:04)
[2025-06-05] MEDS: Mupirocin 1 GM TUBE TP SCH (22:20)
[2025-06-06 04:36] LABS: Anion Gap 14 mmol/L (10-20); BUN (Urea Nitrogen) 31 mg/dL (8.4-25.7); Calc. Creatinine Clearance 68 mL/min (70-130); Calcium 9.3 mg/dL (7.8-10.44); Carbon Dioxide 22 mmol/L (23-31); Chloride 102 mmol/L (98-107); Glucose 263 mg/dL (80-115); Magnesium 3.0 mg/dL (1.6-2.6); Potassium 3.3 mmol/L (3.5-5.1); Sodium 135 mmol/L (136-145)
[2025-06-06] MEDS: Acetaminophen 325 MG TAB PO PRN (07:12)
[2025-06-06] MEDS ORDERED: Metoprolol Succinate XL 25 MG ER.TAB PO SCH (09:00)
[2025-06-06] MEDS ORDERED: Furosemide 20 MG TAB PO SCH (09:00)
[2025-06-06] MEDS: metFORMIN XR 500 MG ER.TAB PO SCH (09:05)
[2025-06-06] MEDS: Finasteride 5 MG TAB PO SCH (09:06)
[2025-06-06] MEDS: Pantoprazole 40 MG DR.TAB PO SCH (09:06)
[2025-06-06] MEDS: Allopurinol 100 MG TAB PO SCH (09:06)
[2025-06-06] MEDS: glipiZIDE XL 5 mg ER.TAB PO SCH (09:07)
[2025-06-06] MEDS: Colchicine 0.6 MG TAB PO SCH (09:07)
[2025-06-07 04:22] LABS: Anion Gap 11 mmol/L (10-20); BUN (Urea Nitrogen) 38 mg/dL (8.4-25.7); Calc. Creatinine Clearance 72 mL/min (70-130); Calcium 9.4 mg/dL (7.8-10.44); Carbon Dioxide 24 mmol/L (23-31); Chloride 104 mmol/L (98-107); Glucose 114 mg/dL (80-115); Magnesium 2.9 mg/dL (1.6-2.6); Potassium 3.2 mmol/L (3.5-5.1); Sodium 136 mmol/L (136-145)
[2025-06-07] MEDS: Furosemide 20 MG TAB PO SCH (08:42)
[2025-06-08 05:04] LABS: Anion Gap 15 mmol/L (10-20); BUN (Urea Nitrogen) 39 mg/dL (8.4-25.7); Calc. Creatinine Clearance 89 mL/min (70-130); Calcium 9.5 mg/dL (7.8-10.44); Carbon Dioxide 22 mmol/L (23-31); Chloride 106 mmol/L (98-107); Glucose 171 mg/dL (80-115); Magnesium 2.6 mg/dL (1.6-2.6); Potassium 3.6 mmol/L (3.5-5.1); Sodium 139 mmol/L (136-145)
[2025-06-08] MEDS: Furosemide 20 MG TAB PO SCH (09:38)
[2025-06-08] MEDS: Guaifenesin DM 100-10/5 ML UDCUP PO PRN (09:55)
[2025-06-09 04:49] LABS: Anion Gap 12 mmol/L (10-20); BUN (Urea Nitrogen) 29 mg/dL (8.4-25.7); Calc. Creatinine Clearance 96 mL/min (70-130); Calcium 9.8 mg/dL (7.8-10.44); Carbon Dioxide 25 mmol/L (23-31); Chloride 108 mmol/L (98-107); Glucose 101 mg/dL (80-115); Magnesium 2.0 mg/dL (1.6-2.6); Potassium 3.6 mmol/L (3.5-5.1); Sodium 141 mmol/L (136-145)
[2025-06-09] MEDS ORDERED: Furosemide 40 MG TAB PO SCH (09:00)
[2025-06-09] MEDS: Dapagliflozin Propanediol 10 MG TAB PO SCH (09:28)
[2025-06-09] MEDS: Lisinopril 5 MG TAB PO SCH (09:29)
[2025-06-09] MEDS: Furosemide 40 MG (4 mL) VIAL SLOW IVP SCH (09:31)
[2025-06-09 13:16] VITALS: BMI 30.7
[2025-06-09] MEDS: Furosemide 40 MG TAB PO SCH (14:32)
[2025-06-10 08:25] VITALS: BP 137/90; TEMP 97.3
== END 2025-06-10 12:32 | disposition home or self-care (01) | DRG 234 ==
LOC: ERS 12:13 → CCU 13:24 → CCL 13:24 → CCU 13:30 → PCU 06-04 20:54
PROVIDERS: ADMIT Thoracic Surgery (Cardiothoracic Vascular Surgery); ATTEND Thoracic Surgery (Cardiothoracic Vascular Surgery)
PROC: 4A023N7 Measurement of Cardiac Sampling and Pressure, Left Heart, Percutaneous Approach (ICD-10-PCS; principal; 2025-06-03)
PROC: 02100Z9 Bypass Coronary Artery, One Artery from Left Internal Mammary, Open Approach (ICD-10-PCS; 2025-06-03)
PROC: B2111ZZ Fluoroscopy of Multiple Coronary Arteries using Low Osmolar Contrast (ICD-10-PCS; 2025-06-03)
PROC: 021209W Bypass Coronary Artery, Three Arteries from Aorta with Autologous Venous Tissue, Open Approach (ICD-10-PCS; 2025-06-03)
PROC: 06BP4ZZ Excision of Right Saphenous Vein, Percutaneous Endoscopic Approach (ICD-10-PCS; 2025-06-03)
PROC: B2151ZZ Fluoroscopy of Left Heart using Low Osmolar Contrast (ICD-10-PCS; 2025-06-03)
PROC: 02L70CK Occlusion of Left Atrial Appendage with Extraluminal Device, Open Approach (ICD-10-PCS; 2025-06-03)
PROC: 5A1221Z Performance of Cardiac Output, Continuous (ICD-10-PCS; 2025-06-03)
PROC: 30233J1 Transfusion of Nonautologous Serum Albumin into Peripheral Vein, Percutaneous Approach (ICD-10-PCS; 2025-06-03)
PROC: 3E043XZ Introduction of Vasopressor into Central Vein, Percutaneous Approach (ICD-10-PCS; 2025-06-03)
PROC: 3E04329 Introduction of Other Anti-infective into Central Vein, Percutaneous Approach (ICD-10-PCS; 2025-06-03)
PROC: 4A033R1 Measurement of Arterial Saturation, Peripheral, Percutaneous Approach (ICD-10-PCS; 2025-06-03)
PROC: 05HY33Z Insertion of Infusion Device into Upper Vein, Percutaneous Approach (ICD-10-PCS; 2025-06-03)
DX: I21.3 ST elevation (STEMI) myocardial infarction of unspecified site (principal); N17.9 Acute kidney failure, unspecified; I10 Essential (primary) hypertension; E11.9 Type 2 diabetes mellitus without complications; M10.9 Gout, unspecified; I25.10 Atherosclerotic heart disease of native coronary artery without angina pectoris; E78.5 Hyperlipidemia, unspecified; I95.9 Hypotension, unspecified; E66.9 Obesity, unspecified; Z68.30 Body mass index [BMI] 30.0-30.9, adult; Z79.84 Long term (current) use of oral hypoglycemic drugs; Z79.899 Other long term (current) drug therapy
CPT/HCPCS: 36415; 36416; 36430; 71045; 80048; 80053; 82805; 83036; 83690; 83735; 84100; 84132; 84484; 85014; 85018; 85025; 85347; 85610; 85730; 86850; 86900; 86901; 93005; 93010; 93306; 93458; 93798; 94002; 94003; 94150; 94640; 94760; 96374; 97139; 99152; 99153; A4311; A4648; C1751; C1769; C1887; C1889; C1894; J0153; J0165; J0169; J0360; J0461; J0665; J1100; J1265; J1308; J1644; J1650; J1815; J1885; J1940; J2003; J2250; J2270; J2405; J2440; J2704; J3010; J3373; J3475; J3480; J7030; P9045; Q9967; S0017

== ENCOUNTER 2025-07-04 08:15 | Observation (INO) | payer OTHER ==
[2025-07-04 09:10] LABS: #Basophils 0.03 10x3/uL (0.0-0.2); #Eosinophils Less than 0.03 10x3/uL (0.0-0.7); #Monocytes 0.59 10x3/uL (0.11-0.59); #Neutrophils 5.70 10x3/uL (1.40-6.50); %Basophils 0.4 % (0.0-1.0); %Eosinophils 0.3 % (0.0-10.0); %Lymphocytes 15.4 % (21.0-51.0); %Monocytes 7.8 % (0.0-10.0); %Neutrophils 75.6 % (42.0-75.0); Hematocrit 43.7 % (42.0-52.0); Hemoglobin 13.3 g/dL (14.0-18.0); Mean Corpuscular Hemoglobin 27.1 pg (27.0-31.0); Mean Corpuscular Volume 89.0 fL (78.0-98.0); Platelet Count 340 10x3/uL (130-400); Red Blood Cell (RBC) Count 4.91 mill/uL (4.70-6.10); White Blood Cell (WBC) Count 7.54 10x3/uL (4.8-10.8)
[2025-07-04] MEDS ORDERED: Nitroglycerin 0.4 MG TAB 1 EACH ONE (09:19)
[2025-07-04] MEDS ORDERED: Furosemide 40 MG (4 mL) VIAL ONE (09:19)
[2025-07-04 09:38] LABS: ALT (SGPT) 23 U/L (Less than 45); AST (SGOT) 31 U/L (11-34); Albumin 3.5 g/dL (3.1-4.5); Alkaline Phosphatase 106 U/L (40-110); Anion Gap 17 mmol/L (10-20); BUN (Urea Nitrogen) 11 mg/dL (8.4-25.7); Bilirubin, Total 0.6 mg/dL (0.3-1.2); Calc. Creatinine Clearance 0 mL/min (70-130); Calcium 9.5 mg/dL (7.8-10.44); Carbon Dioxide 26 mmol/L (23-31); Chloride 103 mmol/L (98-107); Globulin 3.8 g/dL (2.4-3.5); Glucose 239 mg/dL (80-115); Potassium 3.0 mmol/L (3.5-5.1); Sodium 143 mmol/L (136-145)
[2025-07-04] MEDS ORDERED: Acetaminophen 325 MG TAB PO PRN (14:18)
[2025-07-04] MEDS ORDERED: Ondansetron PF 4 MG/2 ML Vial IVP PRN (14:18)
[2025-07-04] MEDS ORDERED: Senokot S 8.6-50 MG TAB PO PRN (14:18)
[2025-07-04] MEDS ORDERED: Electrolyte Replacement Protocol 1 EACH FS SCH (14:30)
[2025-07-04] MEDS ORDERED: PHOS-NAK 1 PKT PACK PO PRN (14:45)
[2025-07-04] MEDS ORDERED: Potassium Chloride 20 MEQ in Premix 1 BAG IVPB PRN (14:45)
[2025-07-04] MEDS ORDERED: Glucagon 1 MG/ML KIT IM PRN (14:47)
[2025-07-04] MEDS ORDERED: Dextrose 50% Abboject 50 ML SYRINGE SLOW IVP PRN (14:47)
[2025-07-04 15:16] LABS: Magnesium 1.1 mg/dL (1.6-2.6)
[2025-07-04] MEDS: Magnesium 2 GM/50 ML(in water) 2 GM in Premix 1 BAG IVPB PRN (17:15)
[2025-07-04] MEDS: Furosemide 40 MG (4 mL) VIAL SLOW IVP SCH (17:16)
[2025-07-04] MEDS: Spironolactone 25 MG TAB PO SCH (17:17)
[2025-07-04 17:21] LABS: Actual Bicarbonate (HCO3v) 27.9 mEq/L (22-28); Base Excess 3.9 mEq/L (-2.0 to +3.0); Calcium, Ionized (venous) 1.08 mmol/L (1.16-1.32); Chloride (VBG) 104 mmol/L (98-106); Hematocrit-VBG 43 % (42.0-52.0); Hemoglobin (Hb) 14.5 g/dL (12.6-17.4); Potassium (VBG) 3.08 mmol/L (3.70-5.30); Sodium 145 mmol/L (133-146)
[2025-07-04 18:10] VITALS: BMI 35.3
[2025-07-04] MEDS: Magnesium 2 GM/50 ML(in water) 2 GM in Premix 1 BAG IVPB SCH (20:41)
[2025-07-04] MEDS: Lisinopril 5 MG TAB PO SCH (21:59)
[2025-07-04 23:36] LABS: Potassium 2.8 mmol/L (3.5-5.1)
[2025-07-05 08:48] LABS: #Basophils 0.03 10x3/uL (0.0-0.2); #Eosinophils 0.11 10x3/uL (0.0-0.7); #Monocytes 0.61 10x3/uL (0.11-0.59); #Neutrophils 5.67 10x3/uL (1.40-6.50); %Basophils 0.4 % (0.0-1.0); %Eosinophils 1.4 % (0.0-10.0); %Lymphocytes 18.9 % (21.0-51.0); %Monocytes 7.6 % (0.0-10.0); %Neutrophils 70.8 % (42.0-75.0); Hematocrit 44.5 % (42.0-52.0); Hemoglobin 13.8 g/dL (14.0-18.0); Mean Corpuscular Hemoglobin 27.3 pg (27.0-31.0); Mean Corpuscular Volume 87.9 fL (78.0-98.0); Platelet Count 202 10x3/uL (130-400); Red Blood Cell (RBC) Count 5.06 mill/uL (4.70-6.10); White Blood Cell (WBC) Count 8.00 10x3/uL (4.8-10.8)
[2025-07-05 08:58] LABS: Anion Gap 19 mmol/L (10-20); BUN (Urea Nitrogen) 13 mg/dL (8.4-25.7); Calc. Creatinine Clearance 113 mL/min (70-130); Calcium 9.9 mg/dL (7.8-10.44); Carbon Dioxide 26 mmol/L (23-31); Chloride 102 mmol/L (98-107); Glucose 189 mg/dL (80-115); Magnesium 2.2 mg/dL (1.6-2.6); Potassium 3.1 mmol/L (3.5-5.1); Sodium 144 mmol/L (136-145)
[2025-07-05] MEDS: Aspirin 325 MG TAB PO SCH (09:18)
[2025-07-05] MEDS: Dapagliflozin Propanediol 10 MG TAB PO SCH (09:20)
[2025-07-05] MEDS: Furosemide 40 MG TAB PO SCH (09:21)
[2025-07-05] MEDS: Spironolactone 25 MG TAB PO SCH (09:21)
[2025-07-05] MEDS: Enoxaparin 40 MG (0.4 mL) SYRINGE SC SCH (09:22)
[2025-07-05 14:10] LABS: Potassium 3.8 mmol/L (3.5-5.1)
[2025-07-05 15:03] VITALS: BP 153/105; TEMP 98
== END 2025-07-05 18:12 | disposition home or self-care (01) ==
LOC: ERS 08:15 → OBS 14:23
PROVIDERS: ADMIT Family Medicine; ATTEND Family Medicine
DX: I25.10 Atherosclerotic heart disease of native coronary artery without angina pectoris (principal); I10 Essential (primary) hypertension; E11.9 Type 2 diabetes mellitus without complications; M79.89 Other specified soft tissue disorders; E87.6 Hypokalemia; E78.5 Hyperlipidemia, unspecified; Z79.84 Long term (current) use of oral hypoglycemic drugs; Z79.82 Long term (current) use of aspirin; Z79.899 Other long term (current) drug therapy; Z95.1 Presence of aortocoronary bypass graft
CPT/HCPCS: 71045; 80048; 80053; 82805; 82962 ×2; 83735 ×2; 83880; 84132 ×2; 84484 ×2; 85025 ×2; 93005; 93970; 96374; 99285; J1650; J1815; J1940; J3475; 36415; 36416; 96365; 96372; 96375; 96376; G0378